=== PATIENT | male | born 1955 | race Asian ===

== ENCOUNTER 2019-01-23 22:22 | Emergency (ER) | payer OTHER ==
[2019-01-24] MEDS: ONDANSETRON 4 MG INJ IV (01:18)
[2019-01-24] MEDS: HYDROmorphONE 0.5 MG/0.5 ML SYG IV (01:18)
== END 2019-01-24 03:34 | disposition home or self-care (01) ==
LOC: E/R 22:22
DX: N28.9 Disorder of kidney and ureter, unspecified (principal); D64.9 Anemia, unspecified; R31.9 Hematuria, unspecified; E11.9 Type 2 diabetes mellitus without complications
CPT/HCPCS: 36415; 74176; 80053; 81003; 83690; 85025; 96374; 96375; 99285-25